=== PATIENT | male | born 1985 | race Caucasian/White ===

== ENCOUNTER 2021-11-01 10:32 | Emergency (ER) | payer OTHER, SELFPAY ==
[2021-11-01 10:34] VITALS: BP 116/79; PULSE 110; RESP 16; TEMP 36.9; O2SAT 95; BMI 39.0
--- NOTE | 2021-11-01 11:20 | EXP.UTC ---
Discharge Plan Disposition Patient Disposition: Home, Self-Care Condition: Good Prescriptions Prescriptions: New azithromycin [Zithromax Z-Joshua] 250 mg tablet See Rx Instructions .ROUTE .COMPLEX Qty: 6 0RF Rx Instructions: For 250 mg dose pack: take 500 mg today (day 1), then 250 mg for 4 days (days 2-5) methylprednisolone [Medrol (Joshua)] 4 mg tablets,dose pack See Rx Instructions .Route .COMPLEX 6 Days Qty: 21 0RF Rx Instructions: taper pack; No Action quetiapine 200 mg tablet 200 mg PO DAILY hydroxyzine pamoate 50 mg capsule 50 mg PO BID quetiapine 100 mg tablet 100 mg PO DAILY omeprazole 20 mg capsule,delayed release(DR/EC) 20 mg PO DAILY lamotrigine 100 mg tablet 100 mg PO DAILY buprenorphine-naloxone 4-1 mg film 1.5 film sublingual DAILY Referrals Follow up/Referrals: Provider,Referral, MD [Primary Care Provider] - See instructions Activity Restrictions/Add. Instructions Additional Instructions/Restrictions: Follow up with your Family Doctor if Clinical Impressions Clinical Impression: URI (upper respiratory infection) Qualifiers: URI type: unspecified URI Qualified Code(s): J06.9 - Acute upper respiratory infection, unspecified Discharge ED Provider: Aline Mary [facility] [place] General Stated complaint: no smell, chills, sob Mode of Arrival: Ambulatory Source of Information: Patient Limitations: No Limitations Time Seen by Provider: 11/01/21 11:20 Description of Symptoms (Recalled from Triage Doc. by RN): Pt c/o no taste/smell, chills, SOA, hot flashes, cough, fatigue x7 days History of Present Illness Provider Complaint: Patient states that he has been sick for close to a week States that he has been having cough, chills, body aches, SOA at times with coughing and loss of taste and smell States that today he was still not feeling well and he was worried about COVID Related Data Home Medications Medication Instructions Recorded Confirmed buprenorphine 4 mg-naloxone 1 mg 1.5 film sublingual DAILY . 11/01/21 11/01/21 sublingual film hydroxyzine pamoate 50 mg capsule 50 mg PO BID . 11/01/21 11/01/21 lamotrigine 100 mg tablet 100 mg PO DAILY . 11/01/21 11/01/21 omeprazole 20 mg capsule,delayed 20 mg PO DAILY GERD 11/01/21 11/01/21 release quetiapine 100 mg tablet 100 mg PO DAILY . 11/01/21 11/01/21 quetiapine 200 mg tablet 200 mg PO DAILY . 11/01/21 11/01/21 Previous Rx's Medication Instructions Recorded azithromycin 250 mg tablet See Rx Instructions PO .COMPLEX #6 11/01/21 (Zithromax Z-Joshua) tabs methylprednisolone 4 mg tablets in See Rx Instructions .Route 11/01/21 a dose pack (Medrol (Joshua)) .COMPLEX 6 days #21 tabs Allergies Allergy/AdvReac Type Severity Reaction Status Date / Time No Known Allergies Allergy Verified 11/01/21 11:38 [facility] Medical History (Updated 11/01/21 @ 11:47 by Aline Mary APRN) History of gastroesophageal reflux (GERD) Hypertension Social History (Updated 11/01/21 @ 11:42 by Nancy Resendiz RN) Smoking Status: Unknown if ever smoked alcohol intake: never current occupational status: other Travel in the last 8 weeks: None ROS Obtained: Yes All systems reviewed & no additional complaints except as documented and Yes Systems reviewed as appropriate & no additional complaints except as documented Constitutional Constitutional: Reports system reviewed and no additional complaints, except as documented, Reports as per HPI, Reports body ache, Reports chills, Reports fatigue, Reports fever(s) and Reports other (REPORTS HOT FLASHES LIKE HE MAY HAD A FEVER) ENT Ears, Nose, Mouth, and Throat: Reports system reviewed and no additional complaints, except as documented and Reports other (LOSS OF TASTE AND SMELL) Cardiovascular Cardiovascular: Reports system reviewed and no additional complaints, except as documented, Reports as per HPI, Denies chest pain, Denies diaphoresis and
[2021-11-01 11:30] VITALS: BP 116/79; PULSE 110; RESP 16; TEMP 36.9; O2SAT 95; BMI 38.9
[2021-11-01 11:49] VITALS: BP 116/79; PULSE 110; RESP 16; TEMP 36.9; O2SAT 95
--- NOTE | 2021-11-03 14:36 | PC.NURSE ---
pt called for test results, given postive covid result
== END 2021-11-01 12:00 | disposition home or self-care (01) ==
PROVIDERS: Emergency Provider Nurse Practitioner
DX: U07.1 COVID-19 (principal); R43.8 Other disturbances of smell and taste; R05.9 Cough, unspecified; R53.83 Other fatigue
CPT/HCPCS: 99212; C9803; G0463; U0003; U0005